=== PATIENT | female | born 1970 | race Caucasian/White ===

== ENCOUNTER → 2016-04-27 | Outpatient (CLI) | payer OTHER ==
[~2016-04-27] MED LIST: ENOXAPARIN40 MG/0.1 SUBQ; FLAX SEED OIL1000 MG PO; FLAXSEED1000 MG PO; HYDROCODONE-AP1 EAC6 PO; IBUPROFEN 800800 M1 PO; INVANZ 1GM/NS 101 GM IV; L-GLUTAMINE500 M2 PO; NOHOMEMEDICATIONS; PREDNISONE 20 M20 MG PO; PREDNISONE50 MG PO; TRAMADOL 50 MG50 MG PO; VANCOMYCIN1.5 GM/250 IV; VENTOLIN HFA 1818 GM INH
== END ==
LOC: RAD 10:08
DX: Z12.31 Encounter for screening mammogram for malignant neoplasm of breast (principal)